=== PATIENT | male | born 1930 | race Caucasian/White ===

== ENCOUNTER 2016-05-18 15:53 | Emergency (ER) | payer MEDICARE, OTHER ==
[~2016-05-18] VITALS: Ht 175.3 cm; Wt 81.8 kg
[~2016-05-18 15:53] MED LIST: ANTI1CAP PO; ASPI81TA2 PO; ATEN100T4 PO; CALC600T85 PO; CHOL400L PO; COU5 PO; LISI10TA PO; METF-487 PO; OMEG100020 PO; VITA1TAB31 PO; ZOC10 PO; [UNRECOGNIZED DRUG - CODE] PO; [UNRECOGNIZED DRUG - CODE] PO
[2016-05-18 16:00] VITALS: BP 132/73; PULSE 74; RESP 16; O2SAT 99
[2016-05-18 16:49] LABS: BASOPHILS % (AUTO) 0.3 % (0-3); EOSINOPHILS % (AUTO) 1.4 % (0-5); MONOCYTES % (AUTO) 11.9 % (4-12); Mean Corpuscular Hemoglobin 30.1 pg (27.0-35.0); Mean Corpuscular Volume 87.8 fL (81-100); NEUTROPHILS % (AUTO) 56.7 % (40-74); Platelet Count 273 bil/L (150-400)
[2016-05-18 17:10] LABS: INR 2.32 ratio
[2016-05-18 17:44] LABS: Magnesium 1.7 mg/dL (1.6-2.6)
[2016-05-18 17:46] LABS: TROPONIN T < 0.010 ug/L (0.0-0.011)
--- NOTE | 2016-05-18 18:57 | DRSVH ---
PROCEDURE: X-RAY CHEST, TWO VIEWS ([id number]) INDICATIONS: Shortness of breath TECHNIQUE: 2 views of the chest were acquired. COMPARISON: None. FINDINGS: Surgical changes and devices: Left-sided pacer. Lungs and pleura: No pleural effusions or pneumothorax. Lungs are clear. Mediastinum: Mediastinal contours are normal. Heart size is enlarged. Bones and chest wall: No suspicious bony abnormalities. Soft tissues appear unremarkable. IMPRESSION: No acute process. Dictated by: Manjinder Stevens M.D. on 05/18/2016 at 18:56 Approved by: Manjinder Stevens M.D. on 05/18/2016 at 18:56
[2016-05-18 19:02] VITALS: BP 134/58; PULSE 82; RESP 20; O2SAT 97
[2016-05-18 20:02] VITALS: BP 122/57; PULSE 84; RESP 20; O2SAT 97
--- NOTE | 2016-05-18 20:09 | ED.REPORT ---
HPI-General Illness Date of Service May 18, 2016 ED Provider: Cruzito Nieves MD History of Present Illness: Mr. Shaun Azul is an 86-year-old male who presents to [facility] emergency Department with past medical history of atrial fibrillation from since 1991 with ventricular pacemaker, congestive heart failure, hypertension, diabetes who presents with advice from his primary care physician due to 3 week history of pneumonia treated with antibiotics, shortness of breath and cough which he received a Ventolin inhaler for and possible laceration of congestive heart failure in combination with atrial fibrillation. He denies fever, chills, nausea, vomiting, headache, syncope, chest pain, abdominal pain, constipation, diarrhea. Reports mildly productive persistent cough and mild shortness of breath. Nursing Notes Stated Complaint: AFIB AND WEAKNESS - FROM URGENT CARE Chief Complaint: Dysrhythmia/Cardiac Nursing Notes Reviewed: Yes Allergies: Uncoded Allergies: PLASMA (Allergy, Unknown, hives, 05/18/16) Scheduled Antiox #8/Om3/Dha/Epa/Lut/Zeax (Preservision Areds 2 Softgel) 1 Each Capsule 1 EACH PO BID Aspirin-Expunged Drug, Do Not Renew! (Aspirin-Expunged Drug, Do Not Renew!) 81 Mg Tablet 81 MG PO DAILY Atenolol-Expunged Drug, Do Not Renew! (Atenolol-Expunged Drug, Do Not Renew!) 100 Mg Tablet 100 MG PO BID CHOLECALCIFEROL-Expunged Drug, Do Not Renew! (VITAMIN D3-Expunged Drug, Do Not Renew!) 400 Unit/5 Ml Liquid 400 UNIT PO DAILY Calcium Carbonate (Caltrate 600) 600 Mg Tablet 600 MG PO BIDAC Digoxin-Expunged Drug, Do Not Renew! (Digoxin-Expunged Drug, Do Not Renew!) 250 Mcg Tablet 250 MCG PO DAILY Lisinopril-Expunged Drug, Do Not Renew! (Lisinopril-Expunged Drug, Do Not Renew! ) 10 Mg Tablet 10 MG PO DAILY Metformin-Expunged Drug, Do Not Renew! (Metformin-Expunged Drug, Do Not Renew!) 500 Mg Tab.er.24 500 MG PO BID Multivitamin/Folic Acid/Dha (One-A-Day Vitacraves Bryant-3) 1 Each Tab.chew 1 EACH PO DAILY Bryant-3/Dha/Epa/Fish Oil-Expunged Drug, Do No (Fish Oil 1,000 Mg-Expunged Drug, Do Not Renew) 1 Each Capsule. 1 EACH PO DAILY Simvastatin-Expunged Drug, Choose New Med! (Simvastatin-Expunged Drug, Choose New Med!) 10 Mg Tablet 10 MG PO HS Vitamin B Complex (Balanced B-100) 1 Each Tablet 1 EACH PO DAILY Warfarin Inactive Drug Do Not Use (Coumadin Inactive Drug Do Not Use) 5 Mg Tablet 5 MG PO DAILY Scheduled PRN Promethazine DM Syrup (Promethazine DM Syrup) 118 Ml Syrup 5 ML PO [id number] PRN PRN For Cough General Time Seen by MD: 16:06 Chief Complaint Breathing problem Hx Obtained From: Patient Sudden in Onset?: No Review of Systems A comprehensive review of systems was conducted with the patient and found to be negative except as above in the History of Present Illness. Full Review of Systems Respiratory: Reports: Shortness of breath Cardiovascular: Reports: Orthopnea Physical Exam General: Elderly pleasant individual sitting in bed in no acute distress, well-developed, well-nourished, appropriately interactive HEENT: Normocephalic, atraumatic. External ears without defect. Pupils equal, round, and reactive to light and accommodation. Anicteric sclerae, moist conjunctivae, and no lid lag. Oropharynx free of erythema and cobble stoning with moist mucosa. Hearing aids bilaterally. Neck: Supple with full range of motion. No jugular venous distension. No bruits. No lymphadenopathy or thyromegaly. Cardiovascular: Irregularly irregular rate and rhythm with no murmurs, rubs, or gallops appreciated Pulmonary: Clear to auscultation bilaterally with mild crackles, and expiratory wheezes on the right middle and right lower lobe and intermittent cough, without rhonchi. Normal respiratory effort with no use of accessory muscles. Abdomen: Bowel tones present. Soft, nontender, nondistended. No hepatosplenomegaly or masses appreciated. Extremities: No clubbing, cyanosis, edema, or lymphadenopathy appreciated. Skin: Normal temperature, turgor, and texture; no rash, ulcers, or subcutaneous nodules appreciated. Neurological: Cranial nerves grossly intact. Normal muscle strength, tone, and bulk. Reflexes, coordination, and sensory function within normal limits. No known gait impairment. Psychiatric: Normal mood and affect. Alert and oriented to person, place, and time. Vital Signs Vital Signs Date Time Temp Pulse Resp B/P Pulse Ox O2 Delivery O2 Flow Rate FiO2 05/18/16 20:02 84 20 122/57 97 Room Air 05/18/16 19:02 82 20 134/58 97 Room Air 05/18/16 16:00 36.2 74 16 132/73 99 Room Air Interpretation & Diagnostics Lab Results Interpretation Result Diagram: 05/18/16 1640 05/18/16 1640 Test 05/18/16 16:40 White Blood Count 11.5th/mm3 (3.8-10.1) Red Blood Count 4.42mil/mm3 (4.40-5.80) Hemoglobin 13.3g/dL (13.8-17.2) Hematocrit 38.8% (41.0-50.0) Mean Corpuscular Volume 87.8fL (81-100) Mean Corpuscular Hemoglobin 30.1pg (27.0-35.0) Mean Corpuscular Hemoglobin Concent 34.3% (32.0-37.0) Red Cell Distribution Width 13.6% (12.3-15.4) Platelet Count 273bil/L (150-400) Neutrophils (%) (Auto) 56.7% (40-74) Lymphocytes (%) (Auto) 28.6% (14-46) Monocytes (%) (Auto) 11.9% (4-12) Eosinophils (%) (Auto) 1.4% (0-5) Basophils (%) (Auto) 0.3% (0-3) Prothrombin Time 25.3sec (8.1-12.5) Prothromb Time International Ratio 2.32ratio Sodium Level 136mEq/L (134-144) Potassium Level 4.4mEq/L (3.5-5.2) Chloride Level 93mEq/L (97-108) Carbon Dioxide Level 32mmol/L (18-29) Blood Urea Nitrogen 19mg/dL (8-27) Creatinine 0.97mg/dL (0.76-1.27) Estimat Glomerular Filtration Rate 78mL/min (>59) Glucose Level 100mg/dL (60-99) Calcium Level 9.7mg/dL (8.5-10.1) Magnesium Level 1.7mg/dL (1.6-2.6) Total Bilirubin 0.3mg/dL (0.0-1.2) Aspartate Amino Transf (AST/SGOT) 21U/L (0-50) Alanine Aminotransferase (ALT/SGPT) 21U/L (0-44) Alkaline Phosphatase 63U/L (25-160) Troponin T < 0.010ug/L (0.0-0.011) Pro-B-Type Natriuretic Peptide 773.8pg/mL (0-486) Total Protein 7.0g/dL (6.4-8.4) Albumin 4.1g/dL (3.4-5.0) Hold See Top Tube Received (Received) Re-Eval/Medical Decision Med Decision/Clinical Course Mr. Shaun Azul is an 86-year-old male who presents to [facility] emergency Department with past medical history of atrial fibrillation from since 1991 with ventricular pacemaker, congestive heart failure, hypertension, diabetes who presents with advice from his primary care physician due to 3 week history of pneumonia treated with antibiotics, shortness of breath and cough which he received a Ventolin inhaler for and possible exacerbation of congestive heart failure in combination with atrial fibrillation. -Possible differential includes exacerbation of congestive heart failure, continuing pneumonia, viral respiratory infection, pulmonary embolism. Mr. Azul's vitals have been stable during his stay here, he has not needed O2 to maintain oxygen sats and his heart rate has remained controlled in the 70s. This makes pulmonary embolism highly unlikely. He was diagnosed with pneumonia 3 weeks ago for which she received full course of antibiotics, here he has been afebrile and his white count is within normal limits making persistent pneumonia less likely. Mr. Azul is on spironolactone chlorthalidone and lisinopril at home with advice to use furosemide as needed to control symptoms of congestive heart failure. Here we obtained a chest x-ray which was normal and an unremarkable BNP of 776, and along with his lack of physical exam findings do not support congestive heart failure. Believe Mr. Shaun Azul should follow closely with his primary care physician within the next several days. Discharge & Departure Shift Change Sign-Out Discussed Complaint(s): Yes Laboratory Evaluation: Lab evaluation discussed Imaging Studies: Imaging discussed Response to Therapy: Unchanged Primary Impression: Cough Disposition: Home Discharge Condition All VS Reviewed: Yes Condition: Stable Patient Instructions: Congestive Heart Failure (ED) Additional Instructions: During you visit to [facility] Emergency Department we obtained blood work for infectious markers, hemoglobin levels, and electrolytes. We obtained chest x-ray imaging. All your lab values were within normal limits and your imaging showed no acute processes or abnormalities. We will send you home with - Promethazine DM cough medicine. Do not hesitate to call emergency services or your primary care physician if you experience any of the following. -High unrelenting fevers. -Uncontrolled vomiting. -Worsening cough and shortness of breath. -Severe hypertension. -Syncope or loss of consciousness. -Chest pain. Follow up with your primary care physician within 1 weeks time following your emergency department visit for medication checks and general well-being. Referrals: Viky Anthony PA-C (PCP) Attending Statement I saw and evaluated patient with resident Dr. Kessler and agree with plan as above. I independently evaluated patient. Improved patient with atrial fibrillation and recent diagnosis pneumonia status post antibiotics sent over by primary doctor. Exam benign as above. Vital signs stable. EKG atrial fibrillation. Labs stable. Chest x-ray no evidence of pneumonia. I see no indication for admission at this time. Patient reports he feels quite well. Recommend follow-up with primary doctor in several days. copies to: Viky Anthony PA-C, COREY P DO May 18, 2016 18:22 Cruzito Nieves MD May 19, 2016 00:12
[2016-05-18] MEDS ORDERED: D-ME118S8 PO (20:15)
== END 2016-05-18 20:20 | disposition home or self-care (01) ==
LOC: SED 15:53
DX: R05 Cough (principal); R06.02 Shortness of breath; I11.0 Hypertensive heart disease with heart failure; E11.59 Type 2 diabetes mellitus with other circulatory complications; I50.9 Heart failure, unspecified; I48.91 Unspecified atrial fibrillation; Z95.0 Presence of cardiac pacemaker; Z79.82 Long term (current) use of aspirin; Z79.84 Long term (current) use of oral hypoglycemic drugs; Z79.01 Long term (current) use of anticoagulants
CPT/HCPCS: 36415; 71020; 80053; 83735; 83880; 84100; 84443; 84484; 85025; 85610; 93005; 99285; G0463